=== PATIENT | male | born 1960 | race Caucasian/White ===

== ENCOUNTER → 2017-03-02 13:58 | Outpatient (CLI) | payer MEDICAID ==
[2016-06-03 10:18] VITALS: BMI 21.6
[~2017-03-02 13:58] MED LIST: ALDACTONE25 MG PO; BUTALB-APAP-CA1 EACH PO; COZAAR50 MG PO; DEPAKOTE500 MG PO; OMNICEF300 MG PO; PERCOCET 10/3251 TA1 PO; PLAVIX75 MG PO; PREDNISONE20 MG PO
== END | disposition home or self-care (01) ==
LOC: D.CT 13:58
DX: R10.32 Left lower quadrant pain (principal)